=== PATIENT | male | born 1990 | race Caucasian/White ===

== ENCOUNTER 2016-07-22 03:07 | Emergency (ER) | payer OTHER ==
[2016-07-22 03:09] VITALS: BP 149/100; PULSE 100; RESP 14; O2SAT 99
--- NOTE | 2016-07-22 03:22 | ED.REPORT ---
HPI-Abd Pain M Under 40 Date of Service July 22, 2016 ED Provider: Dr. Aguila Pt is a healthy 25 year old male who presents to the ED complaining of RLQ abdominal pain with radiation to the RUQ and R flank onset 30 minutes ago after vomiting. Pt c/o associated dysuria, nausea, and vomiting. Pt denies urinary dribbling, hematuria, constipation, and diarrhea. Pt has no history of abdominal surgeries. Nursing Notes Stated Complaint: RIGHT SIDE ABDOMINAL PAIN Chief Complaint: Male Abdominal Pain Nursing Notes Reviewed: Yes Allergies: Coded Allergies: No Known Allergies (Unverified , 07/22/16) General Time Seen by MD: 03:21 Chief Complaint Abdominal pain Hx Obtained From: Patient Arrived By: Walk-in Sudden in Onset?: Yes Onset Occurred: 16 - 30 minutes ago Context of Onset: After vomiting Symptom Duration: Constant Progression since Onset: Constant Location: : RLQ Quality: Painful Radiation: : Flank right: RUQ Severity: Current: Moderate Severity: Maximum: Moderate Associated with: Reports: Dysuria, Nausea, Vomiting Similar Sx Previous: No Past Medical History Past Medical History Healthy Denies: Congestive heart failure, Diabetes mellitus, Hypertension, Transient ischemic attack Past Surgical History None reported Denies: Appendectomy, Cholecystectomy Smoking History Never Smoker Social History Alcohol Use: Denies alcohol use Drug Use: Denies drug use Ambulatory Status Independent Review of Systems GI: Reports: Abdominal pain (RLQ), Nausea, Vomiting, Denies: Constipation, Diarrhea Male: Reports Dysuria, Reports Flank pain (Right), Denies Hematuria Complete sys rev & neg: except as marked. Physical Exam Initial Vital Signs Vital Signs (First) Date Time Temp Pulse Resp B/P Pulse Ox O2 Delivery O2 Flow Rate FiO2 07/22/16 03:09 36.6 100 14 149/100 99 Initial VS: Reviewed Head / Eyes: Atraumatic, Normocephalic, PERRL ENT: Mucous membranes moist, Conjunctiva normal, No scleral icterus Neck: Supple, Full range of motion Extremities: Vascular intact, Neuro intact, No swelling Skin: Warm, Dry, No cyanosis Neurologic: Alert, Oriented, Nonfocal Psychiatric: Mood/affect normal, Behavior normal, Normal thought content General/Constitutional: Awake, Alert, Well appearing, Cooperative, Not toxic appearing Respiratory / Chest: Atraumatic, Breath sounds NL, Breath sounds = bilat, No respiratory distress, No rales, No rhonchi, No wheezing, No stridor Cardiovascular: Heart rate NL, Regular rhythm, Heart sounds NL, No gallop, No murmurs, No rubs Abdomen: Atraumatic, No guarding, No rebound Organomegaly / Mass / Hernia: Positive: Hernia umbilical (small), Negative: Hernia inguinal L, Hernia inguinal R Mild tenderness in mid right abdomen and down into RLQ Back: Full range of motion, Painless range of motion Male Genitourinary: No hernia Interpretation & Diagnostics Lab Results Interpretation Result Diagram: 07/22/16 0320 07/22/16 0320 Test 07/22/16 03:15 07/22/16 03:20 Urine Color Yellow (YELLOW) Urine Appearance Clear (CLEAR,HAZY) Urine pH 7.0 (5.0-8.0) Urine Specific Circle 1.019 (1.003-1.035) Urine Protein Negativemg/dL (NEG,TRACE) Urine Glucose (UA) Negativemg/dL (NEGATIVE) Urine Ketones Negativemg/dL (NEGATIVE) Urine Occult Blood Negative (NEGATIVE) Urine Nitrite Negative (NEGATIVE) Urine Bilirubin Negative (NEGATIVE) Urine Urobilinogen Normalmg/dL (NORMAL) Urine Leukocyte Esterase Negative (NEGATIVE) Urine RBC 0-2/hpf (0-2) Urine WBC 0-5/hpf (0-5) Urine Epithelial Cells Occasional/hpf (NONE-MOD) Urine Crystals None seen (NONE SEEN) Urine Bacteria None/hpf (NONE-FEW) Urine Hyaline Casts None/lpf (NONE) Urine Granular Casts None seen (NONE SEEN) Urine Waxy Casts None seen (NONE SEEN) Urine Red Blood Cell Casts None seen (NONE SEEN) Urine White Blood Cell Casts None seen (NONE SEEN) Urine Mucus Present (None Seen) Urine Trichomonas None seen (NONE SEEN) Urine Yeast None (NONE SEEN) Urine Culture Reflexed Not indicated Hold Urine Received (Received) White Blood Count 9.2th/mm3 (3.8-10.1) Red Blood Count 5.05mil/mm3 (4.40-5.80) Hemoglobin 14.8g/dL (13.8-17.2) Hematocrit 43.0% (41.0-50.0) Mean Corpuscular Volume 85.1fL (81-100) Mean Corpuscular Hemoglobin 29.3pg (27.0-35.0) Mean Corpuscular Hemoglobin Concent 34.4% (32.0-37.0) Red Cell Distribution Width 12.8% (12.3-15.4) Platelet Count 238bil/L (150-400) Neutrophils (%) (Auto) 42.1% (40-74) Lymphocytes (%) (Auto) 40.8% (14-46) Monocytes (%) (Auto) 9.2% (4-12) Eosinophils (%) (Auto) 7.4% (0-5) Basophils (%) (Auto) 0.3% (0-3) Hold Purple Top Tube Received (Received) Prothrombin Time 9.5sec (8.1-12.5) Prothromb Time International Ratio 0.89ratio Hold Blue Top Tube Received (Received) Sodium Level 139mEq/L (134-144) Potassium Level 3.5mEq/L (3.5-5.2) Chloride Level 100mEq/L (97-108) Carbon Dioxide Level 27mmol/L (18-29) Blood Urea Nitrogen 12mg/dL (6-20) Creatinine 1.06mg/dL (0.76-1.27) Estimat Glomerular Filtration Rate 92mL/min (>59) Glucose Level 104mg/dL (60-99) Calcium Level 9.4mg/dL (8.5-10.1) Magnesium Level 2.0mg/dL (1.6-2.6) Total Bilirubin 1.0mg/dL (0.0-1.2) Aspartate Amino Transf (AST/SGOT) 38U/L (0-50) Alanine Aminotransferase (ALT/SGPT) 80U/L (0-44) Alkaline Phosphatase 48U/L (25-150) Total Protein 6.7g/dL (6.4-8.4) Albumin 4.4g/dL (3.4-5.0) Lipase 21U/L (13-60) Hold Burns Top Tube Received (Received) Hold Plasencia Top Tube Received (Received) Re-Eval/Medical Decision Med Decision/Clinical Course 25-year-old presents less than an hour after onset of some right sided abdominal pain. No leukocytosis benign urine reasonably benign exam with some mild tenderness. Await ultrasound this morning, as the clinical scenario it is unlikely to be appendicitis, or even if it is appendicitis, likely to be so early in the course that diagnostic testing will be unrevealing. He is signed out at [address] Mueller. Counseled Regarding: Diagnosis, Lab results Patient Discharge & Departure Primary Impression: Right lower quadrant abdominal pain Discharge Condition All VS Reviewed: Yes Condition: Stable Care Transferred to: Dr. Mueller Care Transferred at: 06:00 Scribe Attestation Portions of this note were transcribed by Patrice Kline and Marii Schuler. I, Dr. Aguila personally performed the history, physical exam and medical decision -making; I reviewed and confirmed the accuracy of the information in the transcribed note. Signed by: Patrice Kline and Marii Schuler, Corrina, 07/22/16 and 0500. José Miguel Aguila MD July 22, 2016 03:22 Marii Baum July 22, 2016 03:28 PATRICE KLINE July 22, 2016 04:28
[2016-07-22 03:45] LABS: APPEARANCE,URINE CLEAR (CLEAR,HAZY); COLOR,URINE YELLOW (YELLOW); OCCULT BLOOD,URINE NEGATIVE (NEGATIVE); UROBILINOGEN,URINE NORMAL (NORMAL)
[2016-07-22] MEDS ORDERED: 0.9% Sodium Chloride 1,000 ML IV ONE (03:47)
[2016-07-22] MEDS ORDERED: Ondansetron 2 mg/mL 2 mL Inj IVPUSH ONE (03:50)
[2016-07-22] MEDS ORDERED: Pantoprazole 4 mg/mL 10 mL Inj IVPUSH ONE (03:50)
[2016-07-22 04:05] LABS: BASOPHILS % (AUTO) 0.3 % (0-3); EOSINOPHILS % (AUTO) 7.4 % (0-5); MONOCYTES % (AUTO) 9.2 % (4-12); Mean Corpuscular Hemoglobin 29.3 pg (27.0-35.0); Mean Corpuscular Volume 85.1 fL (81-100); NEUTROPHILS % (AUTO) 42.1 % (40-74); Platelet Count 238 bil/L (150-400)
[2016-07-22 04:10] LABS: INR 0.89 ratio
[2016-07-22] MEDS ORDERED: HYDROmorphone 1 mg/mL Inj IVPUSH PRN (06:40)
[2016-07-22 07:38] VITALS: BP 131/75; PULSE 62; RESP 16; O2SAT 99
--- NOTE | 2016-07-22 07:59 | DRSVH ---
PROCEDURE: US ABDOMEN INDICATIONS: rlq pain TECHNIQUE: Real-time scanning was performed of the abdominal and retroperitoneal organs, with image documentatio n. COMPARISON: [facility], US, PVE UNILATERAL LEFT, 06/11/2007, 23:39. FINDINGS: Liver length: 17.48 cm Gallbladder Wall Thickness: 2.20 mm CBD: 3.80 mm Spleen length: 10.24 cm Right kidney length: 11.27 cm Left kidney length: 11.82 cm Aorta(Proximal): 2.43 cm Aorta(Mid): 1.60 cm Aorta(Distal): 1.68 cm RCIA: 1.18 cm LCIA: 1.16 cm Liver: Fatty infiltration of the liver. No hepatic masses.. Gallbladder: Ultrasonographically normal. Biliary ducts: Intrahepatic bile ducts are non-dilated. Extrahepatic bile duct caliber is normal. Normal is 6-7 mm or less in diameter, or 10 mm or less post-cholecystectomy. Pancreas: Obscured by bowel gas. Spleen: Spleen is normal in size and homogeneous in echotexture. Kidneys: Kidneys are normal in size and echotexture. No hydronephrosis or nephrolithiasis. No jackelyn d masses. Aorta: Visualized aorta is normal in caliber at less than 3 cm. Iliacs: Proximal common iliac arteries are normal in caliber at less than 2.5 cm. IVC: Intrahepatic inferior vena cava is patent. Miscellaneous: There is right lower quadrant free fluid. The appendix is not identified. IMPRESSION: 1. The appendix is not identified. There is right lower quadrant free fluid. If there is clinical con cern for acute appendicitis recommend a CT of the abdomen and pelvis with IV and oral contrast. 2. Fatty infiltration of the liver. Dictated by: Pradeep Ohara M.D. on 07/22/2016 at 7:50 Approved by: Pradeep Ohara M.D. on 07/22/2016 at 7:52
--- NOTE | 2016-07-22 08:14 | DRSVH ---
PROCEDURE: CT ABDOMEN AND PELVIS WITH CONTRAST ([id number]) INDICATIONS: abd pain TECHNIQUE: After the administration of intravenous contrast, 5 mm thick sections acquired from the diaphragm to the symphysis. 5 mm coronal and sagittal reformats were acquired. For radiation dose reduction, the following was used: automated exposure control, adjustment of mA and/or kV according to patient anel john. COMPARISON: [facility], US, US ABDOMEN, 07/22/2016, 7:13. FINDINGS: Image quality: Excellent. ABDOMEN: Lung bases: Lung bases are clear. Heart size is normal. Solid organs: Liver is enlarged with diffuse steatosis. normal in size and enhancement. Gallbladder is unremarkable. Biliary system is non dilated. Pancreas enhances normally. No adrenal nodules. Kidneys demonstrate normal size and enhancement, without hydronephrosis. Peritoneum and bowel: Bowel loops demonstrate normal wall thickness and caliber. No free air. No d iscernible right lower quadrant fluid is present on CT examination. The appendix is normal in size. T here is no surrounding inflammation or appendicolith. Mild to moderate scattered stool is present. Nodes and vessels: No retroperitoneal or mesenteric adenopathy by size criteria. Scattered right lo wer quadrant lymph nodes are present the largest measuring approximately 5 mm. Aorta and inferior ej a cava are normal in size. Miscellaneous: No ventral hernias. PELVIS: Genitourinary: Bladder wall thickness is normal. Miscellaneous: No inguinal hernias or adenopathy. Bones: No suspicious bony lesions. No vertebral body compression fractures. IMPRESSION: 1. The appendix is unremarkable. Scattered subcentimeter lymph nodes are present in the right lower q uadrant, possibly related to mesenteric adenitis. Dictated by: Krupa Liz M.D. on 07/22/2016 at 8:05 Approved by: Krupa Liz M.D. on 07/22/2016 at 8:12
[2016-07-22] MEDS ORDERED: METO-301 PO (08:39)
[2016-07-22 08:46] VITALS: BP 131/75; PULSE 62; RESP 16; O2SAT 99
== END 2016-07-22 08:49 | disposition home or self-care (01) ==
LOC: SED 03:07
DX: R10.31 Right lower quadrant pain (principal); R30.0 Dysuria; R11.2 Nausea with vomiting, unspecified
CPT/HCPCS: 36415; 74177; 76700; 80053; 81000; 83690; 83735; 85025; 85610; 96361; 96374; 96375; 99285; J1885; J2405; J7030; Q9967